=== PATIENT | female | born 2000 | race Two or more races ===

== ENCOUNTER 2021-02-15 23:01 | Observation (INO) | payer SELFPAY ==
[2021-02-15] MEDS ORDERED: IV RINGERS,LACTATED 1000ML 1,000 ML IV PRN (23:15)
[2021-02-15 23:30] LABS: BILIRUBIN,URINE NEGATIVE (NEG); CLARITY,URINE CLEAR; COLOR,URINE YELLOW; NITRITE,URINE NEGATIVE (NEG); PH,URINE 6.5 (<5.0-8.0); PROTEIN,URINE NEGATIVE (NEG-TRACE)
[2021-02-15 23:36] LABS: BACTERIA,URINE FEW /HPF (0-FEW); RBC,URINE 0 /HPF (0-2)
== END 2021-02-16 01:36 | disposition home or self-care (01) ==
LOC: 3 SO LND 23:01
PROVIDERS: ADMIT Registered Nurse; ATTEND Registered Nurse
DX: O62.9 Abnormality of forces of labor, unspecified (principal); Z3A.37 37 weeks gestation of pregnancy; Z79.899 Other long term (current) drug therapy
CPT/HCPCS: 59025; 81001; 87086; G0378; G0379